=== PATIENT | female | born 1980 | race Caucasian/White ===

== ENCOUNTER 2017-03-02 19:09 | Emergency (ER) | payer MEDICARE, OTHER ==
[~2017-03-02] VITALS: Ht 160 cm; Wt 68.0 kg
[~2017-03-02 19:09] MED LIST: BLOOD PRESSURE MED; CEPH500C3 PO; SULF-154 PO; TRAM50 PO
[2017-03-02 19:11] VITALS: BP 141/87; PULSE 98; RESP 14; TEMP 98.9; O2SAT 98
[2017-03-02] MEDS ORDERED: BACT800T5 PO (19:48)
[2017-03-02] MEDS ORDERED: CEPH-460 PO (19:48)
[2017-03-02] MEDS ORDERED: DICL50TA3 PO (19:49)
--- NOTE | 2017-03-02 19:49 | PD ---
HPI Chief Complaint: Skin Problem Time Seen by Provider: 19:48 Travel History International Travel<30 days: No Contact w/Intl Traveler<30days: No Traveled to known affect area: No History of Present Illness HPI 36-year-old white female presents to emergency department with a tender lesion to the back of her neck which she has noted over last few days. She states that she thinks she may have been bitten by something. The area has become increasingly tender, swollen and has some drainage. She does not recall being bitten. She denies any prior history of skin infections although the medical record indicates that she has had skin infection in the past. PFSH Past Medical History Diminished Hearing: No Genitourinary: Yes (UTERINE FIBROIDS) Hypertension: Yes Neurologic: Yes (AVM, HEMIANOPSIA) Tetanus Vaccination: > 5 Years ?: Not LMP: 2 WEEKS AGO Past Surgical History Section: Yes Tonsillectomy: Yes (T & A ) Social History Alcohol Use: No Tobacco Use: Yes (/ PPD) Substance Use: No Allergies-Medications (Allergen,Severity, Reaction): Coded Allergies: No Known Allergies (Unverified , 03/02/17) Reported Meds & Prescriptions Reported Meds & Active Scripts Active Keflex (Cephalexin) 500 Mg Cap 500 Mg PO Q6H Bactrim DS (Sulfamethoxazole-Trimethoprim) 800-160 Mg Tab 1 Tab PO BID Ultram (Tramadol HCl) 50 Mg Tab 1-2 Tab PO QID PRN FOR PAIN Septra Ds (Trimethoprim/Sulfamethoxazole) Tab 1 Tab PO BID Keflex (Cephalexin Monohydrate) 500 Mg Cap 500 Mg PO BID Reported [Blood Pressure Med] Review of Systems Except as stated in HPI: all other systems reviewed are Neg Physical Exam Narrative GENERAL: This is a well-nourished, well-developed patient, in no apparent distress. SKIN: The patient has a 1.5 x 1.5 round erythematous ulcerative lesion with a central necrotic center. There is a crusty honeycomb drainage from the top. There is no fluctuance or pointing. Tender to touch. HEAD: Atraumatic. Normocephalic. EYES: PERRL, EOMI, no discharge or injection. No scleral icterus. EARS: Clear NOSE: Nasal turbinates appear normal. THROAT: Mucosa pink and moist. Airway patent. NECK: Trachea midline. supple, moves head freely. LUNGS: Clear to auscultation. CV: Regular in rhythm. ABDOMEN: Soft nontender. EXT: No clubbing cyanosis or edema. Data Data Last Documented VS Vital Signs Date Time Temp Pulse Resp B/P Pulse Ox O2 Delivery O2 Flow Rate FiO2 03/02/17 19:11 98.9 98 14 141/87 98 Room Air MDM Medical Decision Making Medical Screen Exam Complete: Yes Emergency Medical Condition: Yes Medical Record Reviewed: Yes Differential Diagnosis MDM: High Differential diagnoses: Abscess, folliculitis, cellulitis, lymphangitis, abrasion, contact dermatitis, pyogenic granuloma Narrative Course Patient is given Bactrim DS and Keflex 500 mg for 10 days. This is PYOGENIC granuloma, secondary cellulitis Diagnosis Primary Impression: Pyogenic granuloma of skin Additional Impression: Cellulitis Qualified Code: L03.221 - Cellulitis of neck Patient Instructions: General Instructions Additional Instructions: Rest. Elevation. keep clean and dry. Warm compresses Daily wound care with soap, water and Neosporin. Bactrim DS, Keflex and diclofenac Follow-up with a primary care doctor in one week. Return to the ER for any problems. Med/Other Pt SpecificInfo: Prescription(s) given, Wound Care Scripts Diclofenac Sodium DR 50 Mg Tabdr50 Mg PO TID #21 TAB Prov:Enrique Villegas MD 03/02/17 Cephalexin (Keflex)500 Mg Ira015 Mg PO Q6H #40 CAP Prov:Enrique Villegas MD 03/02/17 Sulfamethoxazole-Trimethoprim (Bactrim DS)800-160 Mg Tab1 Tab PO BID #20 TAB Prov:Enrique Villegas MD 03/02/17 Disposition: 01 DISCHARGE HOME Condition: Stable Andres Lockwood Mar 02, 2017 19:49
== END 2017-03-02 20:10 | disposition home or self-care (01) ==
LOC: NEPK 19:09
DX: L98.0 Pyogenic granuloma (principal); L03.221 Cellulitis of neck; I10 Essential (primary) hypertension; F17.210 Nicotine dependence, cigarettes, uncomplicated
CPT/HCPCS: 99283

== ENCOUNTER 2017-09-11 16:29 | Emergency (ER) | payer MEDICARE, OTHER ==
[~2017-09-11] VITALS: Ht 160 cm; Wt 67.0 kg
[~2017-09-11 16:29] MED LIST changes: +BACT800T5 PO; +CEPH-460 PO; +DICL50TA3 PO
[2017-09-11 16:31] VITALS: BP 129/86; PULSE 128; RESP 18; TEMP 100.1; O2SAT 95
--- NOTE | 2017-09-11 16:58 | PD ---
Physical Exam Date Seen by Provider: Sep 11, 2017 Time Seen by Provider: 16:56 Narrative 37-year-old female with right sided jaw, facial, and throat pain for the past week. Patient states Worse over the past 24 Hours. She Has Some Chills. She States It Is Worse When She Swallows. It Is Worse on the Left Side Than the Right in the Throat. She Is Having No Cough or Difficulty Breathing. Pain Is Currently an 8 Out Of 10. She Has No Known Drug Allergies. Data Data Last Documented VS Vital Signs Date Time Temp Pulse Resp B/P (MAP) Pulse Ox O2 Delivery O2 Flow Rate FiO2 09/11/17 16:31 100.1 128 18 129/86 (100) 95 MDM Medical Record Reviewed: Yes Supervised Visit with KACI: Yes Narrative Course Vital signs are stable. Patient is awaiting bed placement. Condition: Stable Justice Sequeira Sep 11, 2017 16:57
[2017-09-11 17:24] VITALS: PULSE 82
[2017-09-11] MEDS ORDERED: CLINDAMYCIN PHOS 600 MG/4 ML VIAL IM ONE ×2 (17:30)
[2017-09-11] MEDS ORDERED: predniSONE 20 MG TAB PO ONE ×2 (17:30)
--- NOTE | 2017-09-11 17:31 | PD ---
HPI Chief Complaint: ENT Complaint Time Seen by Provider: 17:29 Travel History International Travel<30 days: No Contact w/Intl Traveler<30days: No Traveled to known affect area: No History of Present Illness HPI 37-year-old female presents to the emergency Department with complaint of left lower jaw pain that started yesterday. Says she can feel a bump to the left lower jaw. Denies throat pain, difficulty swallowing, unusual drooling. Denies left ear pain. Denies fevers, vomiting. Denies pain with opening mouth completely. Pain is a constant stabbing sensation. Rates pain 8/10. Has been taking extra strength Tylenol for symptom management. Pain is constant. No known aggravating factors. No known allergies. Has no other medical complaints. No other modifying factors or associated signs and symptoms. PFSH Past Medical History Medical History: Denies Significant Hx Diminished Hearing: No Genitourinary: Yes (UTERINE FIBROIDS) Hypertension: Yes Neurologic: Yes (AVM, HEMIANOPSIA) ?: Not Past Surgical History Section: Yes Tonsillectomy: Yes (T & A ) Social History Alcohol Use: No Tobacco Use: Yes (1/2 PPD) Substance Use: No Allergies-Medications (Allergen,Severity, Reaction): Coded Allergies: No Known Allergies (Unverified , 09/11/17) Reported Meds & Prescriptions Reported Meds & Active Scripts Active Deltasone (Prednisone) 20 Mg Tab 40 Mg PO DAILY 4 Days start 09/12/2017 Magic Mouthwash Pediatric/Adult Liq (Lidocaine/Diphenhydr/Alum/Mg/Simeth) 60 Ml Susp 5 Ml SWISH-SWAL Q3HR PRN Each 5mL contains: Diphenydramine 4.5mg, Viscous Lidocaine 2% 10mg, Maalox Advanced Regular Strength 2.7ml Ibuprofen 800 Mg Tab 800 Mg PO Q6HR PRN Clindamycin (Clindamycin HCl) 150 Mg Cap 450 Mg PO Q6H [address] (Diclofenac Sodium) 50 Mg Tabdr 50 Mg PO TID Keflex (Cephalexin) 500 Mg Cap 500 Mg PO Q6H Bactrim DS (Sulfamethoxazole-Trimethoprim) 800-160 Mg Tab 1 Tab PO BID Ultram (Tramadol HCl) 50 Mg Tab 1-2 Tab PO QID PRN FOR PAIN Septra Ds (Trimethoprim/Sulfamethoxazole) Tab 1 Tab PO BID Keflex (Cephalexin Monohydrate) 500 Mg Cap 500 Mg PO BID Reported [Blood Pressure Med] Review of Systems Except as stated in HPI: all other systems reviewed are Neg Physical Exam Narrative GENERAL: Well-nourished, well-developed female patient, in no acute distress; low-grade fever 100.1, nontoxic-appearing SKIN: Warm and dry. HEAD: Atraumatic. Normocephalic. Small palpable lump to the left lower jaw; otherwise no notable facial edema; without erythema; palpable lump with tenderness on palpation. No lymphadenopathy. EYES: Pupils equal and round. No scleral icterus. No injection or drainage. ENT: Mucosa pink and moist. No erythema or exudates. No uvular edema. No uvular , palatal, or tonsillar deviation. Airway patent. EARS: Bilateral pinnae and external canals appear within normal limits. Bilateral tympanic membranes without erythema, dullness or perforation. MOUTH: Mucous membranes moist, no lesions, tongue and gums appear normal. Poor dentition throughout. Multiple dental cavities noted. Tooth #19 with tenderness on palpation; large dental cavity noted. Surrounding gingiva is without erythema, edema, drainage. No obvious abscess noted. NECK: Trachea midline. No lymphadenopathy. CARDIOVASCULAR: Regular rate. RESPIRATORY: No accessory muscle use. GASTROINTESTINAL: Flat. MUSCULOSKELETAL: No obvious deformities. No clubbing. No cyanosis. No edema. NEUROLOGICAL: Awake and alert. Oriented 3. No obvious cranial nerve deficits. Motor grossly within normal limits. Normal speech. PSYCHIATRIC: Appropriate mood and affect; insight and judgment normal. Data Data Last Documented VS Vital Signs Date Time Temp Pulse Resp B/P (MAP) Pulse Ox O2 Delivery O2 Flow Rate FiO2 09/11/17 17:24 82 09/11/17 16:31 100.1 18 95 Orders Orders Clindamycin Inj (Cleocin Inj) (09/11/17 17:30) Prednisone (Deltasone) (09/11/17 17:30) Ed Discharge Order (09/11/17 17:46) [facility] Medical Decision Making Medical Screen Exam Complete: Yes Emergency Medical Condition: Yes Medical Record Reviewed: Yes Differential Diagnosis Dental abscess, dental cavities, infected dental cavity, dentalgia, gingivitis, less likely peritonsillar abscess Narrative Course 37-year-old female with left lower dentalgia and dental cavities. There is a small palpable lump to the left lower jaw line, otherwise there is no notable facial edema, erythema. Patient has low-grade fever 100.1. She is nontoxic- appearing. She denies fever or vomiting at home. Oropharynx normal on exam. I spoke with Dr. Haley, my attending physician, and she agrees with my plan of care. Clindamycin 600 mg IM, Deltasone, Toradol administered in the ER. Clindamycin, Deltasone, ibuprofen, Magic mouthwash, Peridex mouth rinse prescribed for home. Patient provided emergency dental information sheet. Instructed patient to follow up with dentist. Instructed patient to follow up with primary care provider. Patient verbalizes understanding and agreement with treatment plan. Patient is medically cleared and stable for discharge. Discussed reasons to return to the emergency department. Patient agrees with treatment plan. The patients vital signs are stable and the patient is stable for outpatient follow-up and treatment. Patient discharged home, stable and in no acute distress. Diagnosis Primary Impression: Dentalgia Additional Impression: Dental cavities Referrals: [facility] Dentist Primary Care Physician Patient Instructions: Dental Abscess (ED), Dental Caries (ED), General Instructions, Toothache (ED) Departure Forms: Tests/Procedures, Work Release Enter return to work date: Sep 12, 2017 Additional Instructions: Complete full course of antibiotics Ibuprofen or Tylenol as directed and as needed to reduce pain and inflammation Use Magic mouthwash rinse as directed and as needed to decrease pain Use Peridex as directed for oral hygiene Warm or cool compresses to the affected area Follow-up with dentist Follow-up with primary care provider Return to emergency department immediately with worsening of symptoms Med/Other Pt SpecificInfo: Prescription(s) given Scripts Prednisone (Deltasone) 20 Mg Tab 40 MG PO DAILY for 4 Days, #8 TAB 0 Refills start 09/12/2017 Prov: Holly Montaño 09/11/17 Wigcxmnzpgdyfdy-Rahkwemfo-Ilx-Alum-Simeth Liq (Magic Mouthwash Pediatric/Adult Liq) 60 Ml Susp 5 ML SWISH-SWAL Q3HR Y for PAIN SCALE 1 TO 10, #60 ML 0 Refills Each 5mL contains: Diphenydramine 4.5mg, Viscous Lidocaine 2% 10mg, Maalox Advanced Regular Strength 2.7ml Prov: Holly Montaño 09/11/17 Ibuprofen (Ibuprofen) 800 Mg Tab 800 MG PO Q6HR Y for PAIN, #30 TAB 0 Refills Prov: Holly Montaño 09/11/17 Clindamycin (Clindamycin) 150 Mg Cap 450 MG PO Q6H for Infection for 10 Days, #120 CAP 0 Refills Prov: Holly Montaño 09/11/17 Disposition: 01 DISCHARGE HOME Condition: Stable Holly Montaño Sep 11, 2017 17:31
[2017-09-11] MEDS ORDERED: PRED-503 PO ×2 (17:44)
[2017-09-11] MEDS ORDERED: IBUP800T23 PO ×2 (17:44)
[2017-09-11] MEDS ORDERED: CLIN1CAP5 PO ×2 (17:44)
[2017-09-11] MEDS ORDERED: MAGICPED SWISH-SWAL ×2 (17:44)
[2017-09-11] MEDS ORDERED: KETOROLAC TROMETHAMINE 60 MG/2 ML (IM) VIAL IM ONE ×2 (18:00)
== END 2017-09-11 18:22 | disposition home or self-care (01) ==
LOC: NEPK 16:29
DX: K02.9 Dental caries, unspecified (principal); R68.84 Jaw pain; I10 Essential (primary) hypertension; F17.200 Nicotine dependence, unspecified, uncomplicated
CPT/HCPCS: 96372; 99284; J1885; J7512

== ENCOUNTER 2018-04-07 14:28 | Emergency (ER) | payer MEDICARE, OTHER ==
[~2018-04-07] VITALS: Ht 160 cm; Wt 66.0 kg
[~2018-04-07 14:28] MED LIST changes: +CLIN150C14 PO; +IBUP1TAB7 PO; +MAGICPED SWISH-SWAL; +PRED-503 PO
[2018-04-07 14:44] VITALS: BP 150/77; PULSE 122; RESP 18; TEMP 99.2; O2SAT 99
[2018-04-07 15:05] VITALS: PULSE 98
[2018-04-07] MEDS ORDERED: IBUP1TAB7 PO (15:19)
[2018-04-07] MEDS ORDERED: BACT800T5 PO (15:19)
[2018-04-07] MEDS ORDERED: TRAM50TA PO (15:19)
--- NOTE | 2018-04-07 15:20 | PD ---
HPI Chief Complaint: Lump, Cyst, Hernia Time Seen by Provider: 15:02 Travel History International Travel<30 days: No Contact w/Intl Traveler<30days: No Traveled to known affect area: No History of Present Illness HPI 37-year-old female presents to the emergency department with complaint of an abscess to her left buttocks 1-1/2 weeks. Denies fever, vomiting. Denies drainage from the abscess. Has history of abscesses that usually come and go on their own. Rates pain 10/10. Worse with pressure to the area, sitting. No known relieving factors. Has tried taking ibuprofen and Tylenol for symptom management. Primary care provider is [facility]. No known allergies. Denies significant past medical history. Has no other medical complaints. No other modifying factors or associated signs and symptoms. PFSH Past Medical History Diminished Hearing: No Genitourinary: Yes (UTERINE FIBROIDS) Hypertension: Yes Neurologic: Yes (AVM, HEMIANOPSIA) Past Surgical History Section: Yes Tonsillectomy: Yes (T & A ) Social History Alcohol Use: No Tobacco Use: Yes (/2 PPD) Substance Use: No Allergies-Medications (Allergen,Severity, Reaction): Coded Allergies: No Known Allergies (Unverified Adverse Reaction, Unknown, 04/07/18) Reported Meds & Prescriptions Reported Meds & Active Scripts Active Ibuprofen 800 Mg Tab 800 Mg PO Q6HR PRN Tramadol (Tramadol HCl) 50 Mg Tab 50 Mg PO Q4H PRN Bactrim DS (Sulfamethoxazole-Trimethoprim) 800-160 Mg Tab 1 Tab PO BID 10 Days Review of Systems Except as stated in HPI: all other systems reviewed are Neg Physical Exam Narrative GENERAL: Well-nourished, well-developed female patient, in no acute distress; afebrile, nontoxic-appearing SKIN: There is an indurated area to the left buttock which measures about 4 cm in diameter. It is fluctuant but there is no pointing or drainage. There is a zone of inflammation around it but no lymphangitis. HEAD: Atraumatic. Normocephalic. EYES: Pupils equal and round. No scleral icterus. No injection or drainage. ENT: Mucosa pink and moist. Airway patent. NECK: Trachea midline. CARDIOVASCULAR: Regular rate. RESPIRATORY: No accessory muscle use. GASTROINTESTINAL: Flat. MUSCULOSKELETAL: No obvious deformities. No clubbing. No cyanosis. No edema. NEUROLOGICAL: Awake and alert. Oriented 3. No obvious cranial nerve deficits. Motor grossly within normal limits. Normal speech. PSYCHIATRIC: Appropriate mood and affect; insight and judgment normal. Data Data Last Documented VS Vital Signs Date Time Temp Pulse Resp B/P (MAP) Pulse Ox O2 Delivery O2 Flow Rate FiO2 04/07/18 15:05 98 04/07/18 14:44 99.2 18 150/77 (101) 99 Orders Orders Wound Culture And Gram Stain (04/07/18 15:20) Lidocaine Pf 1% Inj (Xylocaine-Mpf 1% In (04/07/18 15:30) Oxycodone-Acetamin 5-325 Mg (Percocet (04/07/18 15:45) Sulfamet-Trimeth Ds 800-160 Mg (Bactrim (04/07/18 15:45) Ed Discharge Order (04/07/18 15:34) MDM Medical Decision Making Medical Screen Exam Complete: Yes Emergency Medical Condition: Yes Medical Record Reviewed: Yes Differential Diagnosis Abscess, folliculitis, cellulitis Narrative Course 37-year-old female with abscess of the left buttocks. Patient is afebrile nontoxic pain. See my procedure note for incision and drainage. Wound culture pending. Bactrim, Percocet administered in the ER. Tramadol, ibuprofen, Bactrim prescribed for home. Instructed patient to return to the emergency department in 48 hours for packing removal and abscess recheck. Instructed patient to follow up with primary care provider. Patient verbalizes understanding and agreement with treatment plan. Patient is medically cleared and stable for discharge. Discussed reasons to return to the emergency department. Patient agrees with treatment plan. The patients vital signs are stable and the patient is stable for outpatient follow-up and treatment. Patient discharged home, stable and in no acute distress. Procedures Procedure Narrative INCISION AND DRAINAGE OF ABSCESS: The area was prepped and was sterilely draped. A subcutaneous wheal of 1 % Xylocaine with a total number 3 mL was used to anesthetize the area properly. A number 11 scalpel was used to make a 1 -cm incision across the area of the abscess. The abscess was drained, complex loculations were broken down, and irrigated with normal saline. Cultures were obtained. Quarter inch iodoform packing was placed in the wound. Sterile dressing applied. Patient advised to have packing removed in two days. Diagnosis Primary Impression: Abscess of left buttock Referrals: [facility] Primary Care Physician Patient Instructions: Abscess (ED), Abscess Follow-up (ED), Abscess Incision and Drainage (DC), General Instructions Additional Instructions: Complete full course of antibiotics Warm compresses to the affected area Keep area clean and dry Ibuprofen or Tylenol as directed and as needed for pain and inflammation Return to the emergency department in 48 hours for packing removal and abscess recheck Follow-up with primary care provider Return to emergency department immediately with worsening of symptoms Med/Other Pt SpecificInfo: Prescription(s) given Scripts Ibuprofen (Ibuprofen) 800 Mg Tab 800 MG PO Q6HR Y for PAIN, #30 TAB 0 Refills Prov: Holly Montaño 04/07/18 Tramadol (Tramadol) 50 Mg Tab 50 MG PO Q4H Y for PAIN, #10 TAB 0 Refills Prov: Holly Montaño 04/07/18 Sulfamethoxazole-Trimethoprim (Bactrim DS) 800-160 Mg Tab 1 TAB PO BID for Infection for 10 Days, #20 TAB 0 Refills Prov: Holly Montaño 04/07/18 Disposition: 01 DISCHARGE HOME Condition: Stable Holly Montaño April 07, 2018 15:20
[2018-04-07] MEDS ORDERED: LIDOCAINE HCL 1% PF 30 ML VIAL INFIL ONE (15:30)
[2018-04-07] MEDS ORDERED: SULFAMETHOXAZOLE-TRIMETHOPRIM DS 800-160 MG TAB PO ONE (15:45)
[2018-04-07] MEDS ORDERED: oxyCODONE/ACETAMINOPHEN 5 MG/325 MG TAB PO ONE (15:45)
== END 2018-04-07 15:55 | disposition home or self-care (01) ==
LOC: NEPD 14:28
DX: L02.31 Cutaneous abscess of buttock (principal); B95.62 Methicillin resistant Staphylococcus aureus infection as the cause of diseases classified elsewhere; I10 Essential (primary) hypertension; F17.200 Nicotine dependence, unspecified, uncomplicated; Z86.69 Personal history of other diseases of the nervous system and sense organs; Z87.42 Personal history of other diseases of the female genital tract
CPT/HCPCS: 10060; 87070; 87077; 87186; 87205